=== PATIENT | male | born 1975 | race Caucasian/White ===

== ENCOUNTER 2018-10-16 08:00 | Outpatient (CLI) | payer OTHER ==
[2018-10-16 13:15] LABS: BASOPHILS % (AUTO) 0.5 %; EOSINOPHILS # (AUTO) 0.2 10^3/uL (0.0-0.7); EOSINOPHILS % (AUTO) 2.5 %; HGB - HEMOGLOBIN 14.4 g/dL (14.0-18.0); LYMPHOCYTES # (AUTO) 1.1 10^3/uL (1.5-3.5); LYMPHOCYTES % (AUTO) 17.4 %; MEAN CORPUSCULAR HEMOGLOBIN 29.6 pg (27.0-31.0); MEAN CORPUSCULAR VOLUME 84.5 fL (80.0-94.0); MONOCYTES # (AUTO) 0.5 10^3/uL (0.0-1.0); MONOCYTES % (AUTO) 8.4 %; NEUTROPHILS # (AUTO) 4.6 10^3/uL (1.5-6.6); NEUTROPHILS % (AUTO) 71.2 %; PLT - PLATELET COUNT 252 10^3/uL (130-450); RED BLOOD COUNT 4.86 10^6/uL (4.70-6.10); RED CELL DISTRIBUTION WIDTH 13.2 % (12.0-15.0); WHITE BLOOD COUNT 6.4 x10^3/uL (4.8-10.8)
[2018-10-16 13:31] LABS: ALBUMIN 4.6 g/dL (3.2-5.5); ALBUMIN/GLOBULIN RATIO 1.9 (1.0-2.2); ALKALINE PHOSPHATASE 66 IU/L (42-121); ALT ALANINE AMINOTRANSFERASE 22 IU/L (10-60); AST ASPARTATE AMINOTRANSFERASE 20 IU/L (10-42); BILIRUBIN,TOTAL 0.5 mg/dL (0.2-1.0); BUN - BLOOD UREA NITROGEN 8 mg/dL (6-20); CALCIUM 9.2 mg/dL (8.5-10.3); CARBON DIOXIDE - CO2 27 mmol/L (21-32); CHLORIDE 103 mmol/L (101-111); CHOL/HDL RATIO 4.3 (<5.0); CHOLESTEROL 126 mg/dL; CREATININE 0.9 mg/dL (0.6-1.2); GFR - MDRD 91 (>89); GLUCOSE 104 mg/dL (70-100); HDL CHOLESTEROL 29 mg/dL; LDL CHOLESTEROL,CALCULATED 79 mg/dL; LDL/HDL RATIO 2.7 (<3.6); SODIUM 136 mmol/L (135-145); VLDL CHOLESTEROL 18 mg/dL
== END 2018-10-16 23:59 | disposition home or self-care (01) ==
LOC: LAB.WCP 08:00
PROVIDERS: ATTEND Family Medicine
DX: E78.5 Hyperlipidemia, unspecified (principal)
CPT/HCPCS: 36415; 80050; 80061; 83721; 84153

== ENCOUNTER 2022-09-30 14:30 | Outpatient (CLI) | payer OTHER ==
[2022-09-30 14:44] LABS: BASOPHILS # (AUTO) 0.1 10^3/uL (0.0-0.1); BASOPHILS % (AUTO) 0.8 %; EOSINOPHILS # (AUTO) 0.2 10^3/uL (0.0-0.7); EOSINOPHILS % (AUTO) 2.1 %; HCT - HEMATOCRIT 41.4 % (42.0-52.0); HGB - HEMOGLOBIN 13.5 g/dL (14.0-18.0); LYMPHOCYTES # (AUTO) 1.1 10^3/uL (1.5-3.5); LYMPHOCYTES % (AUTO) 12.1 %; MEAN CORPUSCULAR HEMOGLOBIN 27.7 pg (27.0-31.0); MEAN CORPUSCULAR HGB CONC 32.6 g/dL (32.0-36.0); MEAN PLATELET VOLUME 8.8 fL (7.4-11.4); MONOCYTES # (AUTO) 0.5 10^3/uL (0.0-1.0); MONOCYTES % (AUTO) 5.6 %; NEUTROPHILS # (AUTO) 7.1 10^3/uL (1.5-6.6); PLT - PLATELET COUNT 257 10^3/uL (130-450); RED BLOOD COUNT 4.87 10^6/uL (4.70-6.10); RED CELL DISTRIBUTION WIDTH 13.2 % (12.0-15.0); WHITE BLOOD COUNT 9.1 x10^3/uL (4.8-10.8)
[2022-09-30 15:04] LABS: ESTIMATED AVERAGE GLUCOSE 117 mg/dL (70-100); HEMOGLOBIN A1c% 5.7 % (4.27-6.07)
[2022-09-30 15:23] LABS: ALBUMIN 4.2 g/dL (3.2-5.5); ALBUMIN/GLOBULIN RATIO 1.6 (1.0-2.2); BILIRUBIN,TOTAL 0.4 mg/dL (0.2-1.0); TOTAL PROTEIN 6.8 g/dL (6.7-8.2)
== END 2022-09-30 14:31 | disposition home or self-care (01) ==
LOC: LAB 14:30
PROVIDERS: ATTEND Nurse Practitioner
DX: L03.115 Cellulitis of right lower limb (principal); R73.03 Prediabetes
CPT/HCPCS: 36415; 80053; 83036; 85025

== ENCOUNTER 2024-02-17 09:03 | Outpatient (CLI) | payer OTHER ==
[2024-02-17 09:29] LABS: BASOPHILS # (AUTO) 0.1 10^3/uL (0.0-0.1); BASOPHILS % (AUTO) 0.7 %; EOSINOPHILS # (AUTO) 0.3 10^3/uL (0.0-0.7); HGB - HEMOGLOBIN 14.5 g/dL (14.0-18.0); LYMPHOCYTES # (AUTO) 1.3 10^3/uL (1.5-3.5); LYMPHOCYTES % (AUTO) 15.1 %; MEAN CORPUSCULAR HEMOGLOBIN 27.6 pg (27.0-31.0); MEAN CORPUSCULAR VOLUME 83.8 fL (80.0-94.0); MEAN PLATELET VOLUME 8.5 fL (7.4-11.4); MONOCYTES # (AUTO) 0.7 10^3/uL (0.0-1.0); MONOCYTES % (AUTO) 7.7 %; NEUTROPHILS # (AUTO) 6.4 10^3/uL (1.5-6.6); NEUTROPHILS % (AUTO) 71.8 %; PLT - PLATELET COUNT 246 10^3/uL (130-450); RED BLOOD COUNT 5.25 10^6/uL (4.70-6.10); RED CELL DISTRIBUTION WIDTH 13.3 % (12.0-15.0); WHITE BLOOD COUNT 8.9 x10^3/uL (4.8-10.8)
[2024-02-17 09:46] LABS: ALBUMIN 4.5 g/dL (3.2-5.5); ALKALINE PHOSPHATASE 75 IU/L (42-121); ALT ALANINE AMINOTRANSFERASE 22 IU/L (10-60); AST ASPARTATE AMINOTRANSFERASE 14 IU/L (10-42); BILIRUBIN,TOTAL 0.4 mg/dL (0.2-1.0); BUN - BLOOD UREA NITROGEN 9 mg/dL (6-20); CALCIUM 9.3 mg/dL (8.5-10.3); CARBON DIOXIDE - CO2 27 mmol/L (21-32); CHLORIDE 103 mmol/L (101-111); CHOLESTEROL 127 mg/dL; CREATININE 0.9 mg/dL (0.6-1.3); GFR - MDRD 89 (>89); GLUCOSE 124 mg/dL (74-104); HDL CHOLESTEROL 32 mg/dL; LDL CHOLESTEROL,CALCULATED 86 mg/dL; LDL/HDL RATIO 2.7 (<3.6); POTASSIUM 4.3 mmol/L (3.5-4.5); SODIUM 136 mmol/L (135-145); TOTAL PROTEIN 6.7 g/dL (6.4-8.9); TRIGLYCERIDES 46 mg/dL (48-352); VLDL CHOLESTEROL 9 mg/dL
[2024-02-17 10:00] LABS: THYROID STIMULATING HORMONE 1.94 uIU/mL (0.34-5.60)
[2024-02-17 10:22] LABS: ESTIMATED AVERAGE GLUCOSE 117 mg/dL (70-100); HEMOGLOBIN A1c% 5.7 % (4.27-6.07)
== END 2024-02-17 09:04 | disposition home or self-care (01) ==
LOC: LAB 09:03
PROVIDERS: ATTEND Nurse Practitioner
DX: I10 Essential (primary) hypertension (principal); E78.5 Hyperlipidemia, unspecified; E66.9 Obesity, unspecified; Z12.5 Encounter for screening for malignant neoplasm of prostate; F31.9 Bipolar disorder, unspecified
CPT/HCPCS: 36415; 80050; 80061; 83036; 83721; 84153

== ENCOUNTER 2024-02-23 21:33 | Outpatient (CLI) | payer OTHER | END 2024-02-23 23:59 | disposition critical access hospital (66) | LOC: EMS 21:33 | DX: T42.4X2A Poisoning by benzodiazepines, intentional self-harm, initial encounter (principal); R41.82 Altered mental status, unspecified | CPT/HCPCS: A0425; A0429 ==

== ENCOUNTER 2024-02-23 21:49 | Emergency (ER) | payer OTHER ==
[2024-02-23 22:19] LABS: BASOPHILS # (AUTO) 0.1 10^3/uL (0.0-0.1); BASOPHILS % (AUTO) 0.4 %; EOSINOPHILS # (AUTO) 0.3 10^3/uL (0.0-0.7); EOSINOPHILS % (AUTO) 2.6 %; HCT - HEMATOCRIT 43.2 % (42.0-52.0); HGB - HEMOGLOBIN 14.4 g/dL (14.0-18.0); LYMPHOCYTES # (AUTO) 1.7 10^3/uL (1.5-3.5); LYMPHOCYTES % (AUTO) 13.6 %; MEAN CORPUSCULAR HGB CONC 33.3 g/dL (32.0-36.0); MEAN CORPUSCULAR VOLUME 83.9 fL (80.0-94.0); MEAN PLATELET VOLUME 8.9 fL (7.4-11.4); MONOCYTES # (AUTO) 0.9 10^3/uL (0.0-1.0); MONOCYTES % (AUTO) 7.2 %; NEUTROPHILS # (AUTO) 9.3 10^3/uL (1.5-6.6); NEUTROPHILS % (AUTO) 75.4 %; PLT - PLATELET COUNT 274 10^3/uL (130-450); RED BLOOD COUNT 5.15 10^6/uL (4.70-6.10); WHITE BLOOD COUNT 12.3 x10^3/uL (4.8-10.8)
--- NOTE | 2024-02-23 22:23 | ED Physician Documentation ---
PD HPI MHE - Stated complaint Stated Complaint: OD,SI - Chief complaint Chief Complaint: MHE - History obtained from History obtained from: Patient, EMS - Additional information Additional information: Patient provides little in the way of HPI/ROS on my evaluation; this seems predominantly due to drowsiness, but even when awake, if he is guarded with information. Many of his answers seem glib and dismissive. Per EMS report, the patient took 10 tablets of Xanax (1 mg tablets) at approximately noon today, and then took another 12 tablets around 6 PM this afternoon. When asked patient why he did this, he shrugs his shoulders repeatedly and, despite asking him multiple times, he does not offer me any answers as to why. The triage ED RN says patient answered this question for him with "because my is a cunt". On my HPI, the patient does not have an answer to my question (repeated a few times) as to why he is in the emergency department at this time. Thus, I eventually told him the information I have regarding Xanax overdose. The patient says "well, I wouldn't call it an overdose". I then asked him if he took 10 tablets of 1 mg Xanax at noon and 12 tablets of the same medication around 6 PM; after a long pause, he says "that sounds about right". Patient is very drowsy and falls asleep a few times during H&P. Before I was in the room to evaluate him, the nurse the ED RN had to place 2 L nasal cannula oxygen due to episodic hypopnea with hypoxia. Review of Systems Unable to obtain: Other (drowsy. such vague and mostly glib answers such as to render ROS effectively unobtainable) PD PAST MEDICAL HISTORY - Past Medical History Past Medical History: No Psych: Bipolar disorder, Post traumatic stress disorder - Past Surgical History Past Surgical History: Yes - Present Medications Home Medications: Ambulatory Orders Medication Instructions Recorded Confirmed Esomeprazole Magnesium [Nexium] 20 mg PO DAILY 01/03/15 01/09/15 HYDROcod/ACETAM 5/325 [Vicodin 1 - 2 ea PO Q6H PRN #30 tablet 01/03/15 01/09/15 5/325] Ibuprofen 600 mg PO TID #30 tablet 01/03/15 01/09/15 Pravastatin Sodium [Pravachol] 01/03/15 01/09/15 Pregabalin [Lyrica] 100 mg PO BID 01/03/15 01/09/15 Prozosine 01/03/15 01/09/15 Quetiapine Fumarate [Seroquel] 75 mg PO DAILY 01/03/15 01/09/15 Sertraline HCl [Zoloft] 50 mg PO DAILY 01/03/15 01/09/15 Vit D3-Vit K/Berberine/Hops 01/03/15 01/09/15 [Ostera Tablet] lamoTRIgine [Lamictal] 300 mg PO DAILY 01/03/15 01/09/15 lisinopriL [Lisinopril] 10 mg PO DAILY 01/03/15 01/09/15 Naproxen [Naprosyn] 500 mg PO BID PRN 20 Days tablet 01/09/15 Topiramate [Topamax] 50 mg PO 01/09/15 01/09/15 - Allergies Allergies/Adverse Reactions: Allergies Allergy/AdvReac Type Severity Reaction Status Date / Time No Known Drug Allergies Allergy Verified 01/09/15 16:41 - Social History Does the pt smoke?: Yes Smoking Status: Current every day smoker Does the pt drink ETOH?: Yes Does the pt have substance abuse?: No - Immunizations Immunizations are current?: Yes - POLST Patient has POLST: No PD ED PE NORMAL - Vitals Vital signs reviewed: Yes - General General: Well developed/nourished, Other (drowsy, falls asleep a few times during H+P) - HEENT HEENT: Atraumatic, PERRL - Cardiac Cardiac: RRR, No murmur - Respiratory Respiratory: No respiratory distress, Clear bilaterally - Abdomen Abdomen: Soft, Non tender - Neuro Eye Opening: To Voice Motor: Obeys Commands Verbal: None (unable to assess verbal due to not answering orientation questions beyond his name) GCS Score: 10 Results - Vitals Vitals: Vital Signs - 24 hr 02/23/24 02/23/24 02/24/24 21:55 23:54 01:32 Temperature 36.4 C L Heart Rate 86 72 78 Respiratory 14 16 18 Rate Blood Pressure 135/97 H 111/83 H O2 Saturation 93 93 94 If not protocol 2 2 : Oxygen Flow, liters/minute Oxygen O2 Source Nasal cannula - Labs Labs: Laboratory Tests 02/23/24 02/23/24 02/23/24 22:10 22:10 23:29 WBC 12.3 H RBC 5.15 Hgb 14.4 Hct 43.2 MCV 83.9 MCH 28.0 MCHC 33.3 RDW 13.0 Plt Count 274 MPV 8.9 Neut # (Auto) 9.3 H Lymph # (Auto) 1.7 Rooks # (Auto) 0.9 Eos # (Auto) 0.3 Baso # (Auto) 0.1 Absolute Nucleated RBC 0.00 Nucleated RBC % 0.0 Sodium 137 Potassium 3.7 Chloride 104 Carbon Dioxide 27 Anion Gap 6.0 BUN 10 Creatinine 0.8 Estimated GFR (MDRD) 102 Glucose 95 Calcium 9.2 Magnesium 1.8 Total Bilirubin 0.4 AST 16 ALT 21 Alkaline Phosphatase 70 Total Creatine Kinase 80 Total Protein 6.2 L Albumin 4.1 Globulin 2.1 Albumin/Globulin Ratio 2.0 Lipase 12 TSH 4.08 Urine Color YELLOW Urine Clarity CLEAR Urine pH 6.5 Ur Specific [place] 1.020 Urine Protein NEGATIVE Urine Glucose (UA) NEGATIVE Urine Ketones NEGATIVE Urine Occult Blood NEGATIVE Urine Nitrite NEGATIVE Urine Bilirubin NEGATIVE Urine Urobilinogen 0.2 (NORMAL) Ur Leukocyte Esterase NEGATIVE Ur Microscopic Review NOT INDICATED Urine Culture Comments NOT INDICATED Salicylates < 1.5 Urine Opiates Screen NEGATIVE Ur Buprenorphine Scrn NEGATIVE Ur Oxycodone Screen NEGATIVE Urine Methadone Screen NEGATIVE Acetaminophen < 0.1 Ur Barbiturates Screen NEGATIVE Ur Tricyclics Screen NEGATIVE Ur Phencyclidine Scrn NEGATIVE Ur Amphetamine Screen POSITIVE H U Methamphetamines Scrn NEGATIVE U Benzodiazepines Scrn POSITIVE H Urine Cocaine Screen NEGATIVE U Cannabinoids Screen POSITIVE H Ur Drug Screen Comment CUTOFF CONC BELOW: Ethyl Alcohol < 10.0 SARS-CoV-2 (PCR) 02/23/24 23:29 WBC RBC Hgb Hct MCV MCH MCHC RDW Plt Count MPV Neut # (Auto) Lymph # (Auto) Rooks # (Auto) Eos # (Auto) Baso # (Auto) Absolute Nucleated RBC Nucleated RBC % Sodium Potassium Chloride Carbon Dioxide Anion Gap BUN Creatinine Estimated GFR (MDRD) Glucose Calcium Magnesium Total Bilirubin AST ALT Alkaline Phosphatase Total Creatine Kinase Total Protein Albumin Globulin Albumin/Globulin Ratio Lipase TSH Urine Color Urine Clarity Urine pH Ur Specific [place] Urine Protein Urine Glucose (UA) Urine Ketones Urine Occult Blood Urine Nitrite Urine Bilirubin Urine Urobilinogen Ur Leukocyte Esterase Ur Microscopic Review Urine Culture Comments Salicylates Urine Opiates Screen Ur Buprenorphine Scrn Ur Oxycodone Screen Urine Methadone Screen Acetaminophen Ur Barbiturates Screen Ur Tricyclics Screen Ur Phencyclidine Scrn Ur Amphetamine Screen U Methamphetamines Scrn U Benzodiazepines Scrn Urine Cocaine Screen U Cannabinoids Screen Ur Drug Screen Comment Ethyl Alcohol SARS-CoV-2 (PCR) NOT DETECTED PD Medical Decision Making - ED course Complexity details: reviewed results, re-evaluated patient, considered differential, d/w patient ED course: No remarkable/concerning findings on tonight's blood tests. Minimal leukocytosis (WBC 12.3). Normal ER abdominal panel with the only exception bein g low protein which is, as an isolated finding, insignificant and noncontributory. Urine drug screen positive for amphetamines but not methamphetamines, positive for benzodiazepines, positive for cannabinoids. Undetectable alcohol, Tylenol, ASA levels. COVID negative by nasal swab. As noted in HPI, above, the patient is so drowsy for the first several hours of his ED stay that he required supplemental (nasal cannula) oxygen to prevent hypoxia (which, in turn, was due to witnessed hypopnea). Fortunately, the supplemental oxygen maintained acceptable pulse ox levels since then. Very late in my shift, the patient began to become more awake and alert and was weaned off supplemental oxygen. On reevaluation, the patient is again not forthcoming with information regarding taking too many Xanax yesterday. He is angry and dismissive. A telepsychiatric consult is requested; this evaluation is pending at the end of my shift and thus the care of this patient is turned over the oncoming ED reena wallace (Dr. Elizalde). Departure - Departure Forms: PCP List
[2024-02-23 22:38] LABS: ALBUMIN 4.1 g/dL (3.2-5.5); ALKALINE PHOSPHATASE 70 IU/L (42-121); ALT ALANINE AMINOTRANSFERASE 21 IU/L (10-60); AST ASPARTATE AMINOTRANSFERASE 16 IU/L (10-42); BILIRUBIN,TOTAL 0.4 mg/dL (0.2-1.0); BUN - BLOOD UREA NITROGEN 10 mg/dL (6-20); CALCIUM 9.2 mg/dL (8.5-10.3); CARBON DIOXIDE - CO2 27 mmol/L (21-32); CHLORIDE 104 mmol/L (101-111); CK- CREATINE KINASE 80 IU/L (30-223); CREATININE 0.8 mg/dL (0.6-1.3); ETOH - ETHANOL < 10.0 mg/dL; GFR - MDRD 102 (>89); GLUCOSE 95 mg/dL (74-104); LIPASE 12 U/L (11-82); MAGNESIUM 1.8 mg/dL (1.7-2.3); POTASSIUM 3.7 mmol/L (3.5-4.5); SODIUM 137 mmol/L (135-145); TOTAL PROTEIN 6.2 g/dL (6.4-8.9)
[2024-02-23 22:39] LABS: ACETAMINOPHEN < 0.1 ug/mL; SALICYLATE < 1.5 mg/dL
[2024-02-23 23:15] LABS: THYROID STIMULATING HORMONE 4.08 uIU/mL (0.34-5.60)
[2024-02-23 23:41] LABS: BILIRUBIN,URINE NEGATIVE (NEGATIVE); GLUCOSE, URINE (UA) NEGATIVE (NEGATIVE); KETONES,URINE (UA) NEGATIVE (NEGATIVE); LEUKOCYTE ESTERASE, URINE NEGATIVE (NEGATIVE); NITRITE,URINE NEGATIVE (NEGATIVE); OCCULT BLOOD,URINE NEGATIVE (NEGATIVE); PH,URINE 6.5 PH (5.0-7.5); PROTEIN,URINE NEGATIVE (NEGATIVE); UROBILINOGEN,URINE 0.2 (NORMAL) E.U./dL (NORMAL)
[2024-02-23 23:42] LABS: CLARITY,URINE CLEAR (CLEAR)
[2024-02-23 23:50] LABS: THC CANNABINOID SCREEN, URINE POSITIVE (NEGATIVE)
[2024-02-23 23:51] LABS: AMPHETAMINE SCREEN,URINE POSITIVE (NEGATIVE); BARBITURATE SCREEN,UR NEGATIVE (NEGATIVE); BENZODIAZEPINES SCREEN, URINE POSITIVE (NEGATIVE); BUPRENORPHINE SCREEN, URINE NEGATIVE (NEGATIVE); COCAINE SCREEN URINE NEGATIVE (NEGATIVE); METHADONE SCREEN, URINE NEGATIVE (NEGATIVE); METHAMPHETAMINES SCREEN, URINE NEGATIVE (NEGATIVE); OPIATE SCREEN, URINE NEGATIVE (NEGATIVE); OXYCODONE SCREEN, URINE NEGATIVE (NEGATIVE); TRICYCLIC ANTIDEPRESSANT,URINE NEGATIVE (NEGATIVE)
--- NOTE | 2024-02-24 09:41 | TELEPSYCH PHYS NOTE ---
[facility] Telepsych Consult Consult Date: 02/24/24 Name of Referring Provider:: ED Reason for Consult: Overdose - Assessment Language: Fijian Grants Assistant Required: No Cultural, Amish or Spiritual Preferences: Not mentioned Notes: ED NOTE:Patient provides little in the way of HPI/ROS on my evaluation; this seems predominantly due to drowsiness, but even when awake, if he is guarded with information. Many of his answers seem glib and dismissive. Per EMS report, the patient took IO tablets of Xanax (1 mg tablets) at approximately noon today, and then took another 12 tablets around 6 PM this afternoon. When asked patient why he did tug, he shrugs shoulders repeatedly and, despite asking htm multiple bmes, he does not offer me any answers as to why. The triage ED RN says patent answered this question for him with "because my is a cunt. On my HPI, the patient does not have an answer to my question (repeated a few times) as to why he is in the emergency department at this time. Thus, I eventually told the information I have regarding Xanax overdose. The patient says "well, I wouldn't call it an overdose', I then asked him if he took IO tablets Of 1 mg Xanax at noon and 12 tablets Of the same medication around 6 PM; after a long pause, he says that sounds about rightn- Patient is very drowsy and falls asleep a few times during H&P. Before I was in the room to evaluate him, the nurse the ED RN had to place 2 L nasal cannula oxygen due to episodic hypopnea with hypoxia. Chief Complaint: Overdose History of Present Illness: Patient states he is here for "Apparently I had one too many xanax" He is groggy and slow to respond. He remembers it "vaguely". Asked why "cause I'm 48yrs old going through a divorce and my is f leaving me with my kids" Asked about suicidal intent "well I didn't do it to go to [facility]". Evasive about premeditate. He is not happy to be alive today, no. If he had the chance to kill himself would he says not just today, he would like to see the aftermath of the sh*tstorm from yesterday. He's not sleeping lately. He has no appetite, has lost weight but "not enough". He has a psychiatrist. He takes lamotrigine, abilify, xanax, sertraline, prazosin, and more. Dx include PTSD, depression, and others. He's not been taking his night meds for a while. He's not using alcohol or illegal drugs. He's had a few suicide attempts in the past, last one 8 years ago. He has been hospitalized in the past, last also about 8 years ago. Lives with and kids and his mother in law. He is retired , 100% service connection. No legal problems. He is not agreeable to hospitalization. 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 Requests AMA repeatedly. Suicide Ideation - Homicide Ideation - Self Harm: Admits to suicidal intent in a round about way. Psychiatric History - Treatment History: He has a psychiatrist. He takes lamotrigine, abilify, xanax, sertraline, prazosin, and more. Dx include PTSD, depression, and others. He's not been taking his night meds for a while. He's not using alcohol or illegal drugs. He's had a few suicide attempts in the past, last one 8 years ago. He has been hospitalized in the past, last also about 8 years ago. Community Resources Accessed: ED Family Psych History/ History of suicide: Unknown - Medication & Allergies Home Medications: Ambulatory Orders Medication Instructions Recorded Confirmed Esomeprazole Magnesium [Nexium] 20 mg PO DAILY 01/03/15 01/09/15 HYDROcod/ACETAM 5/325 [Vicodin 1 - 2 ea PO Q6H PRN #30 tablet 01/03/15 01/09/15 5/325] Ibuprofen 600 mg PO TID #30 tablet 01/03/15 01/09/15 Pravastatin Sodium [Pravachol] 01/03/15 01/09/15 Pregabalin [Lyrica] 100 mg PO BID 01/03/15 01/09/15 Prozosine 01/03/15 01/09/15 Quetiapine Fumarate [Seroquel] 75 mg PO DAILY 01/03/15 01/09/15 Sertraline HCl [Zoloft] 50 mg PO DAILY 01/03/15 01/09/15 Vit D3-Vit K/Berberine/Hops 01/03/15 01/09/15 [Ostera Tablet] lamoTRIgine [Lamictal] 300 mg PO DAILY 01/03/15 01/09/15 lisinopriL [Lisinopril] 10 mg PO DAILY 01/03/15 01/09/15 Naproxen [Naprosyn] 500 mg PO BID PRN 20 Days tablet 01/09/15 Topiramate [Topamax] 50 mg PO 01/09/15 01/09/15 Allergies/Adverse Reactions: Allergies Allergy/AdvReac Type Severity Reaction Status Date / Time No Known Drug Allergies Allergy Verified 01/09/15 16:41 - Drug & Alcohol History Does patient have Drug/ETOH history or addictive behavior?: No - Trauma Does the patient have a history of trauma, abuse, neglect or explotation?: Yes History of trauma, abuse, neglect, or exploitation (Notes): PTSD, - Personal Information Does the patient have a history or present tendencies for violence?: None Services History: Retired with 100% Service Connection Does patient have any Legal Charges or Investigations?: No Environment & Living Situation - Social, Peer-Group (Note): At home Marital Status - Family Circumstances: and still cohabitating, but impending divorce initiated by Stressors - Financial Concerns: Loss of family Education: College 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, - Medical History Psychiatric: reports: Bipolar disorder, Post traumatic stress disorder - Mental Status Exam Appearance and Attire: Disheveled but appropriately dressed Attitude and Behavior: Irritable, difficult to engage, does not want to participate in interview but does so for basic questions only Speech: RRR Affect and Mood: Mood is depressed, affect dysthymic Association and Thought Process: Logical with intact associations Thought Content: No obviously delusional content, there is thinly veiled suicidal content Perception: Not attending AH Sensorium, memory and orientation: Alert, oriented, mostly clear sensorium, but reports memory loss for the last 24 hrs consistent with xanax OD Intellectual - Cognitive functioning: Normal range Insight and Judgement: Poor Emotional and Behavioral Functioning: Deteriorated from known or estimated baseline Ability to Self-Care: Deteriorated from known or estimated baseline - Personal Goals Short-term Goals: To go home and try to save what's left of his marriage - Risk/Protective Factors Risk Factors: Trigger events leading to humiliation, shame and/or despair Protective Factors / Internal: N/A Protective Factors / External: Responsibility to children - Plan Impression/Risk Assessment: MDD, Adjustment Disorder, Hx of PTSD Treatment - Therapy Recommendations: This is a very pleasant 48M with history of PTSD and remote hx of prior suicide attempts, presenting with xanax overdose in the context of threatened divorce and loss of children. He admits to suicidal intent, vaguely. He is irritable and minimally engaged. He demonstrates minimal investment in self or future oriented thinking, portrays only a sense of hopelessness and despair without remorse for potentially lethal act. He will not engage in safety planning just irritably repeats "AMA". Although I recognize [place] involuntary procedures are much more difficult to overcome than in [place], I can only find recommendation for emergency hold appropriate. Xanax overdoses are significant, and though he's through the worst of it he's still not mentally cleared and likely to have ongoing disinhibitory and amnestic effects though days 2-3 post OD. Not to mention he hits almost every text-book red flag for suicide risk except substance abuse. I would be very concerned if released due to denial of emergency hold order. Pharmacological Recommendations: Continue home meds other than xanax while in ED. - Time Spent & Provider Location Telepsych consultation conducted via videoconferencing: Yes List names and roles of persons who participated in consult: Beverley Antony MD Telepsych Provider Location: [place] Time Spent (Minutes): 65
[2024-02-24 17:41] VITALS: BP 125/87; O2SAT 98
--- NOTE | 2024-03-15 21:23 | ED Physician Documentation ---
ED Addendum - Addendum Addendum: 03/15/24 21:21 Star Dove is a 48-year-old male who presented to the emergency department after a Xanax overdose related to an impending divorce and child custody proceedings. The patient is angry and ambivalent. Our pitch worker was able to work out a safety plan with the patient who does not want to be admitted into a psychiatric facility for this. He does indicate to me that he will not do anything to harm his ex- or himself. 03/15/24 21:23 Departure - Departure Disposition: 01 Home, Self Care Clinical Impression: Suicidal ideation, Depressive disorder Drug overdose Qualifiers: Encounter type: initial encounter Injury intent: undetermined intent Qualified Code(s): T50.904A - Poisoning by unspecified drugs, medicaments and biological substances, undetermined, initial encounter Condition: Stable Instructions: ED Stress React, ED Depression, ED Overdose Intentional Follow-Up: Yeimy Shepherd ARNP [Provider Admit Priv/Credential] - Comments: Star, today it looks like you took too much xanax yesterday resulting in a visit to the ED. We are recommending hospitalization for depression. It looks like you do not want to do this and the crisis response worker has worked out a safety plan for you to follow. We are here 24 hours per day and if you feel like you would agree to hospitalization return to the ED. Otherwise follow up as planned and follow the safety plan as outlined by the Crisis response worker. Forms: PCP List Discharge Date/Time: 02/24/24 17:45
== END 2024-02-24 17:45 | disposition home or self-care (01) ==
LOC: EDUNIT# → ED 21:49
DX: T42.4X4A Poisoning by benzodiazepines, undetermined, initial encounter (principal); F31.9 Bipolar disorder, unspecified; F43.10 Post-traumatic stress disorder, unspecified; F17.290 Nicotine dependence, other tobacco product, uncomplicated; Z63.5 Disruption of family by separation and divorce
CPT/HCPCS: 36415; 80053; 80143; 80179; 80306; 81003; 82077; 82550; 83690; 83735; 84443; 85025; 87635; 90834; 93005; 99284; 99285; Q3014; 81001; 87086

== ENCOUNTER 2024-04-30 08:17 | Day surgery (SDC) | payer OTHER ==
--- NOTE | 2024-04-30 06:20 | HISTORY & PHYSICAL EXAMINATION ---
PMH/PSH - Past Medical History Cardiovascular: positive: Hypertension, High cholesterol Respiratory: positive: Sleep apnea, CPAP use Endocrine/Autoimmune: positive: None GI: positive: None : positive: None HEENT: positive: Chronic hearing loss, Other Psych: positive: Bipolar disorder, Post traumatic stress disorder Musculoskeletal: positive: Osteoarthritis Derm: positive: None MRSA Hx?: No Social & Family Hx - Social History Does the pt smoke?: Yes Smoking Status: Current every day smoker Does the pt drink ETOH?: Yes Does the pt have substance abuse?: No Substance Use and Type: Marijuana - POLST Patient has POLST: No Meds/Allgy - Home Medications Home Medications: Ambulatory Orders Medication Instructions Recorded Confirmed Pravastatin Sodium [Pravachol] 1 tab PO DAILY 01/03/15 04/30/24 Prozosine 5 mg PO DAILY 01/03/15 04/29/24 Sertraline HCl [Zoloft] 50 mg PO DAILY 01/03/15 04/29/24 lamoTRIgine [Lamictal] 300 mg PO DAILY 01/03/15 04/30/24 lisinopriL [Lisinopril] 10 mg PO DAILY 01/03/15 04/30/24 Rabeprazole Sodium 20 mg PO DAILY 04/09/24 04/29/24 Dextroamphetamine/Amphetamine 15 mg ORAL DAILY 04/29/24 04/30/24 [Adderall 15 mg Tablet] Topiramate [Topiramate ER] 150 mg ORAL DAILY 04/29/24 04/30/24 - Allergies Allergies/Adverse Reactions: Allergies Allergy/AdvReac Type Severity Reaction Status Date / Time No Known Drug Allergies Allergy Verified 04/30/24 08:36 Impression/Plan - Problem List Problem List: Pre-op H&P I am asked to see Star for a screening colonoscopy examination. GI symptoms: None Family history of colon cancer/polyps: No Personal history of colon polyps: No Last colonoscopy examination: Never Anticoagulant use: None The Past Family, Social and Personal History has been reviewed with the patient. PSH: Left orchiectomy PMH: GORDY, Increased lipids, HTN FH: Negative SH: , + Cig/ETOH ROS Denies fevers, chills, night sweats, shortness of breath, chest pain, change in the color of skin or urine, diarrhea, constipation, hematemesis, hematochezia, headache, visual changes, muscle aches. PE VSS, Afeb HEENT: Pupils equal, round and reactive to light, sclera anicteric, normal hearing, oral mucous membranes moist and without lesions NECK: Supple without lymphadenopathy, thyromegaly or carotid bruits LUNGS: Clear to auscultation without wheezing HEART: NSR without murmurs CHEST: Equal and symmetric expansion, no rib pain ABD: Soft, nontender, no hepatosplenomegaly, no hernias GROIN: No hernias or lymphadenopathy EXTREMITIES: Normal neuro and muscular exam SKIN: Anicteric Radiologic Studies N/A Assessment: Request for a screening colonoscopy examination. Plan: Screening colonoscopy under sedation through the Day Surgery admission protocol at [facility]. Consent: Star has been counseled for the procedure, it's indications, risks, benefits and expected outcome as well as alternative therapies. We specifically discussed risks associated with anesthesia and insertion of the endoscope into the large intestine which includes bleeding and injury to the colon which may require surgical intervention. Star understands, agrees, and consents to the proposed operative strategy and requests that we proceed with the procedure as outlined in our discussion. Jaspal Dc MD, FACS General Surgery Service
[2024-04-30] MEDS: LACTATED RINGERS 1,000 ML IV ONE ×2 (08:25→10:12)
--- NOTE | 2024-04-30 09:01 | ANESTHESIA ---
Pre-Anesthesia VS, & Labs - Diagnosis screening - Procedure colonoscopy Vital Signs: Temp Pulse Resp BP Pulse Ox O2 Flow Rate 36.3 C L 68 16 117/79 96 04/30/24 08:28 04/30/24 08:28 04/30/24 08:28 04/30/24 08:28 04/30/24 08:28 Height: 5 ft 9 in Weight (kg): 106.6 kg Body Mass Index: 34.7 BMI Classification: Obese - NPO >8 hours Home Medications and Allergies Home Medications: Ambulatory Orders Dextroamphetamine/Amphetamine [Adderall 15 mg Tablet] 15 mg ORAL DAILY 04/29/24 Topiramate [Topiramate ER] 150 mg ORAL DAILY 04/29/24 Pravastatin Sodium [Pravachol] 1 tab PO DAILY 01/03/15 Prozosine 5 mg PO DAILY 01/03/15 Sertraline HCl [Zoloft] 50 mg PO DAILY 01/03/15 lamoTRIgine [Lamictal] 300 mg PO DAILY 01/03/15 lisinopriL [Lisinopril] 10 mg PO DAILY 01/03/15 Rabeprazole Sodium 20 mg PO DAILY 04/09/24 Dextroamphetamine/Amphetamine [Adderall 15 mg Tablet] 15 mg ORAL DAILY 04/29/24 Topiramate [Topiramate ER] 150 mg ORAL DAILY 04/29/24 Allergies/Adverse Reactions: Allergies Allergy/AdvReac Type Severity Reaction Status Date / Time No Known Drug Allergies Allergy Verified 04/30/24 08:36 Anes History & Medical History - Anesthetic History Anesthesia Complications: reports: No previous complications Family history of Anesthesia Complications: Denies Family history of Malignant Hyperthermia: Denies - Medical History Cardiovascular: reports: Hypertension, High cholesterol Pulmonary: reports: Sleep apnea, CPAP use Gastrointestinal: reports: None Urinary: reports: None Musculoskeletal: reports: Osteoarthritis Endocrine/Autoimmune: reports: None Skin: reports: None Smoking Status: Current every day smoker Psychosocial: reports: Cannabis History of Cancer?: No - Surgical History Gynecologic: reports: Other (testicular torsion) Exam General: Alert, Oriented x3, Cooperative Dental: WNL Mouth Openin Fingerbreadth Neck Mobility: Normal Mallampati classification: II Thyromental Distance: 4-6 cm Respiratory: Lungs clear Cardiovascular: Regular rate Plan Anesthesia Type: General, Total IV Consent for Procedure(s) Verified and Reviewed: Yes Code Status: Attempt Resuscitation ASA classification: 2-Mild systemic disease Is this case an emergency?: No
[2024-04-30] MEDS ORDERED: LIDOCAINE-PF 2% 10 ML AMP SUBQ ONE (09:23)
[2024-04-30] MEDS ORDERED: PROPOFOL 500 MG/50 ML 500 MG/50 ML VIAL ONE (09:53)
[2024-04-30 11:08] VITALS: BP 114/74; O2SAT 100
--- NOTE | 2024-04-30 11:35 | ANESTHESIA POST OP EVALUATION ---
Anesthesia Post Eval - Post Anesthesia Eval Vitals: Last Vital Signs Temp 36.4 C L 04/30/24 10:12 Pulse 74 04/30/24 10:45 Resp 16 04/30/24 10:45 BP 114/74 04/30/24 10:45 Pulse Ox 100 04/30/24 10:45 O2 Flow Rate CV Function Including HR & BP: Stable Pain Control: Satisfactory Nausea & Vomiting: Negative Mental Status: Baseline Respiratory Status: Airway Patent Hydration Status: Satisfactory Anesthesia Complications: None
== END 2024-04-30 08:18 | disposition home or self-care (01) ==
LOC: SDS 08:17
PROVIDERS: ATTEND Surgery
PROC: 0DBM8ZZ Excision of Descending Colon, Via Natural or Artificial Opening Endoscopic (ICD-10-PCS; principal; 2024-04-30 09:15)
DX: Z12.2 Encounter for screening for malignant neoplasm of respiratory organs (principal); K63.5 Polyp of colon; K57.30 Diverticulosis of large intestine without perforation or abscess without bleeding; E66.9 Obesity, unspecified; G47.30 Sleep apnea, unspecified; F17.200 Nicotine dependence, unspecified, uncomplicated; I10 Essential (primary) hypertension; Z68.34 Body mass index [BMI] 34.0-34.9, adult
CPT/HCPCS: 45380; J7120